=== PATIENT | male | born 1950 | race Caucasian/White ===

== ENCOUNTER 2017-09-12 17:24 | Emergency (ER) | payer MEDICARE ==
[~2017-09-12 17:24] MED LIST: BENZAPRIL; CYCL-36 PO; DOCU1CAP39 PO; DULO20 PO; LEVO50TA4 PO; LOPR50TA12 PO; LORA1TAB PO; NORV10TA PO; OXYC10TA8 PO
[2017-09-12] MEDS ORDERED: DIPHTH/TETANUS/ACEL PERTUSSIS (BOOSTER) 0.5 ML VIAL/PFS IM ONE ×2 (17:27→18:16)
[2017-09-12] MEDS ORDERED: PROPOFOL 1000 MG/100 ML INJ 100 ML ONE ×2 (17:29→18:20)
[2017-09-12] MEDS ORDERED: ROCURONIUM INJ 50 MG/5 ML VIAL ONE (17:46)
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
--- NOTE | 2017-09-12 18:04 | RADRPT ---
EXAM DATE/TIME: 09/12/2017 17:24 [facility] COMPARISON: No previous studies available for comparison. INDICATIONS : Trauma alert; post intubation. MEDICAL HISTORY : Unobtainable. SURGICAL HISTORY : Unobtainable. ENCOUNTER: Initial ACUITY: 1 day PAIN SCORE: Non-responsive. LOCATION: Bilateral chest FINDINGS: A single view of the chest demonstrates the lungs to be symmetrically aerated without evidence of mas s, infiltrate or effusion. The cardiomediastinal contours are unremarkable. Osseous structures are intact. Endotracheal tube tip 3.5 cm above the ashlyn. CONCLUSION: 1. ET tube in good position. 2. The lungs are clear. Ortiz Martinez MD on September 12, 2017 at 18:01 Board Certified Radiologist. This report was verified electronically.
[2017-09-12 18:07] LABS: AUTOMATED NEUTROPHIL # 2.4 TH/MM3 (1.8-7.7); BASOPHIL % 0.4 % (0.0-2.0); EOSINOPHIL # 0.2 TH/MM3 (0-0.4); EOSINOPHIL % 4.3 % (0.0-4.0); HEMATOCRIT 26.9 % (39.0-51.0); HEMOGLOBIN 9.6 GM/DL (13.0-17.0); LYMPH % 29.6 % (9.0-44.0); LYMPHOCYTE # 1.3 TH/MM3 (1.0-4.8); MEAN CELL VOLUME 82.7 FL (80.0-100.0); MEAN CORPUSCULAR HEMOGLOBIN 29.6 PG (27.0-34.0); MEAN CORPUSCULAR HGB CONC 35.8 % (32.0-36.0); MEAN PLATELET VOLUME 7.3 FL (7.0-11.0); MONO % 11.5 % (0.0-8.0); MONOCYTE # 0.5 TH/MM3 (0-0.9); NEUT % 54.2 % (16.0-70.0); PLATELET COUNT 215 TH/MM3 (150-450); RED BLOOD COUNT 3.26 MIL/MM3 (4.50-5.90); RED CELL DISTRIBUTION WIDTH 17.6 % (11.6-17.2); WHITE BLOOD COUNT 4.5 TH/MM3 (4.0-11.0)
[2017-09-12 18:09] VITALS: O2SAT 100
[2017-09-12 18:10] LABS: INTERNATIONAL NORMALIZED RATIO 1.1 RATIO; PROTHROMBIN TIME - PATIENT 10.8 SEC (9.8-11.6)
--- NOTE | 2017-09-12 18:15 | RADRPT ---
EXAM DATE/TIME: 09/12/2017 18:00 [facility] COMPARISON: No previous studies available for comparison. INDICATIONS : NG tube placement. MEDICAL HISTORY : Unobtainable. SURGICAL HISTORY : Unobtainable. ENCOUNTER: Initial ACUITY: 1 day PAIN SCORE: Non-responsive. LOCATION: Abdomen. FINDINGS: A frontal view of the lower chest and upper abdomen is performed. No gastric tube seen. The visuali zed lower lungs are clear. Multiple clips the right upper quadrant. Multiple cardiac leads project over the chest. CONCLUSION: A gastric tube is not identified. A Ortiz Martinez MD on September 12, 2017 at 18:12 Board Certified Radiologist. This report was verified electronically.
[2017-09-12] MEDS ORDERED: ceFAZolin 2 GM PREMIX 50 ML IV STA (18:16)
[2017-09-12] MEDS ORDERED: SODIUM CHLOR 0.9% 1000 ML INJ 1,000 ML IV ONE (18:30)
[2017-09-12] MEDS ORDERED: PROPOFOL 1000 MG/100 ML IV PRN (18:30)
[2017-09-12] MEDS ORDERED: ROCURONIUM INJ 50 MG/5 ML VIAL IV ONE (18:30)
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
== END 2017-09-12 18:40 | disposition short-term general hospital (02) ==
LOC: EDBD 17:24 → NEPI 17:24 → MERGE 17:24 → NEPE 18:40
DX: T31.20 Burns involving 20-29% of body surface with 0% to 9% third degree burns (principal); I10 Essential (primary) hypertension; G89.29 Other chronic pain; J44.9 Chronic obstructive pulmonary disease, unspecified; T65.891A Toxic effect of other specified substances, accidental (unintentional), initial encounter; Y92.000 Kitchen of unspecified non-institutional (private) residence as the place of occurrence of the external cause; Z23 Encounter for immunization
CPT/HCPCS: 16030; 31500; 43753; 51702; 71045; 74018; 80048; 80307; 85025; 85610; 85730; 86850; 86900; 86901; 90471; 90715; 96374; 96375; 96376; 99291; G0390; J3010

== ENCOUNTER 2017-09-21 18:45 | Inpatient (IN) | payer MEDICARE, MEDICAID ==
[~2017-09-21] VITALS: Ht 182.9 cm; Wt 86.1 kg
[2017-09-21 20:00] VITALS: BP 134/68; PULSE 87; RESP 20; TEMP 98.1; O2SAT 98
[2017-09-21] MEDS ORDERED: SODIUM CHLORIDE 0.9% FLUSH 10 ML FLUSH IV FLUSH PRN (20:00)
[2017-09-21] MEDS ORDERED: RESP: IPRATROPIUM 0.5 MG/2.5 ML NEB NEB PRN (20:00)
[2017-09-21] MEDS ORDERED: NALOXONE HCL 0.4 MG/ML AMP IV PUSH PRN ×2 (20:00→21:15)
[2017-09-21] MEDS ORDERED: SODIUM CHLORIDE 0.9% FLUSH 10 ML FLUSH IV FLUSH SCH (21:00)
[2017-09-21 21:15] VITALS: BP 134/68; PULSE 81; RESP 20; TEMP 98.1; O2SAT 98
[2017-09-21] MEDS: METOPROLOL TARTRATE 25 MG TAB PO SCH (23:38)
--- NOTE | 2017-09-21 23:44 | HHI.HP ---
[facility] [place] [facility] Unknown Admission Diagnosis Diagnoses: Past Family Social History Allergies: Coded Allergies: aspirin (Unverified Adverse Reaction, Severe, N/V, 03/17/17) codeine (Unverified Adverse Reaction, Unknown, N/V, 03/17/17) Physical Exam Vital Signs Vital Signs Date Time Temp Pulse Resp B/P (MAP) Pulse Ox O2 Delivery O2 Flow Rate FiO2 09/21/17 21:15 98.1 81 20 134/68 (90) 98 09/21/17 20:00 98.1 87 20 134/68 (90) 98 Physical Exam TEMPLATE: GENERAL: This is a well-nourished, well-developed patient, in no apparent distress. SKIN: No rashes, ecchymoses or lesions. Cool and dry. HEAD: Atraumatic. Normocephalic. EYES: No scleral icterus. No injection or drainage. ENT: Nose without bleeding, purulent drainage. NECK: Trachea midline. No JVD or lymphadenopathy. CARDIOVASCULAR: Regular rate and rhythm without murmurs, gallops, or rubs. RESPIRATORY: Clear to auscultation. Breath sounds equal bilaterally. No wheezes , rales, or rhonchi. GASTROINTESTINAL: Abdomen soft, non-tender, nondistended. No guarding. MUSCULOSKELETAL: Extremities without clubbing, cyanosis, or edema. No calf tenderness. NEUROLOGICAL: Awake and alert. Motor and sensory grossly within normal limits. Normal speech. . Caprini VTE Risk Assessment Caprini Risk Assessment Model Point Value = 1 Point Value = 2 Point Value = 3 Point Value = 5 Age 41-60 Minor surgery BMI > 25 kg/m2 Swollen legs Varicose veins or History of unexplained or recurrent spontaneous Oral contraceptives or hormone replacement Sepsis (< 1 month) Serious lung disease, including pneumonia (< 1 month) Abnormal pulmonary function Acute myocardial infarction Congestive heart failure (< 1 month) History of inflammatory bowel disease Medical patient at bed rest Age 61-74 Arthroscopic surgery Major open surgery (> 45 min) Laparoscopic surgery (> 45 min) Malignancy Confined to bed (> 72 hours) Immobilizing plaster cast Central venous access Age >= 75 History of VTE Family history of VTE Factor V Leiden Prothrombin [id number] Lupus anticoagulant Anticardiolipin antibodies Elevated serum homocysteine Heparin-induced thrombocytopenia Other congenital or acquired thrombophilia Stroke (< 1 month) Elective arthroplasty Hip, pelvis, or leg fracture Acute spinal cord injury (< 1 month) Prophylaxis Regimen Total Risk Factor Score Risk Level Prophylaxis Regimen 0-1 Low Early ambulation 2 Moderate Order ONE of the following: *Sequential Compression Device (SCD) *Heparin 5000 units SQ BID 3-4 Higher Order ONE of the following medications: *Heparin 5000 units SQ TID *Enoxaparin/Lovenox 40 mg SQ daily (WT < 150 kg, CrCl > 30 mL/min) *Enoxaparin/Lovenox 30 mg SQ daily (WT < 150 kg, CrCl > 10-29 mL/min) *Enoxaparin/Lovenox 30 mg SQ BID (WT < 150 kg, CrCl > 30 mL/min) AND/OR *Sequential Compression Device (SCD) 5 or more Highest Order ONE of the following medications: *Heparin 5000 units SQ TID (Preferred with Epidurals) *Enoxaparin/Lovenox 40 mg SQ daily (WT < 150 kg, CrCl > 30 mL/min) *Enoxaparin/Lovenox 30 mg SQ daily (WT < 150 kg, CrCl > 10-29 mL/min) *Enoxaparin/Lovenox 30 mg SQ BID (WT < 150 kg, CrCl > 30 mL/min) AND *Sequential Compression Device (SCD) Halle Rivero Sep 21, 2017 23:44
[2017-09-21] MEDS: HEPARIN SODIUM - SQ 10,000 UNITS/ML VIAL SQ SCH (23:45)
[2017-09-22] VITALS (12 sets, daily range): BP systolic 103–144; BP diastolic 56–75; PULSE 73–102; RESP 16–20; TEMP 98.4–98.9; O2SAT 93–99
[2017-09-22] MEDS ORDERED: SODIUM CHLORIDE 0.65% NASAL SPRAY 45 ML BTL EACH NARE PRN (00:15)
[2017-09-22] MEDS ORDERED: ONDANSETRON HCL 4 MG/2 ML VIAL IV PUSH PRN (00:15)
[2017-09-22] MEDS ORDERED: diphenhydrAMINE HCL 25 MG CAP PO PRN (00:15)
[2017-09-22] MEDS: oxyCODONE HCL 20 MG CONTROLLED RELEASE TAB PO SCH ×3 (00:47→20:34)
[2017-09-22] MEDS: PANTOPRAZOLE SOD 40 MG DELAYED RELEASE TAB PO SCH ×3 (00:48→20:35)
[2017-09-22] MEDS: METHOCARBAMOL 500 MG TAB PO SCH ×4 (00:48→21:19)
[2017-09-22] MEDS: ARTIFICIAL TEARS OPTH SOLN 15 ML BTL EACH EYE SCH ×4 (01:25→17:03)
[2017-09-22] MEDS: PIPERACIL-TAZO 3.375 GM PREMIX 50 ML IV SCH ×3 (01:28→17:03)
[2017-09-22] MEDS: HYDROmorphone HCL PF 2 MG/ML VIAL IV PUSH PRN ×3 (01:57→17:01)
[2017-09-22] MEDS: SODIUM CHLORIDE 0.9% FLUSH 10 ML FLUSH IV FLUSH PRN ×2 (01:58→17:02)
[2017-09-22] MEDS: RESP: IPRATROPIUM 0.5 MG/2.5 ML NEB NEB SCH ×4 (02:48→20:19)
[2017-09-22] MEDS ORDERED: clonazePAM 0.5 MG TAB PO PRN (03:00)
[2017-09-22] MEDS: QUEtiapine FUMARATE 200 MG TAB PO SCH ×2 (03:27→20:34)
[2017-09-22] MEDS: LEVOTHYROXINE SODIUM 75 MCG TAB PO SCH (06:50)
[2017-09-22] MEDS: HEPARIN SODIUM - SQ 10,000 UNITS/ML VIAL SQ SCH ×3 (06:52→21:22)
[2017-09-22] MEDS: BACITRACIN TOP OINT 15 GM TUBE TOPICAL SCH ×4 (06:52→23:00)
[2017-09-22 07:21] LABS: BASOPHIL % 0.3 % (0.0-2.0); EOSINOPHIL # 0.8 TH/MM3 (0-0.4); EOSINOPHIL % 6.3 % (0.0-4.0); HEMATOCRIT 25.1 % (39.0-51.0); HEMOGLOBIN 8.6 GM/DL (13.0-17.0); LYMPH % 11.2 % (9.0-44.0); LYMPHOCYTE # 1.5 TH/MM3 (1.0-4.8); MEAN CELL VOLUME 82.7 FL (80.0-100.0); MEAN CORPUSCULAR HEMOGLOBIN 28.4 PG (27.0-34.0); MEAN CORPUSCULAR HGB CONC 34.3 % (32.0-36.0); MEAN PLATELET VOLUME 7.3 FL (7.0-11.0); MONO % 5.8 % (0.0-8.0); MONOCYTE # 0.8 TH/MM3 (0-0.9); NEUT % 76.4 % (16.0-70.0); PLATELET COUNT 507 TH/MM3 (150-450); RED BLOOD COUNT 3.03 MIL/MM3 (4.50-5.90); RED CELL DISTRIBUTION WIDTH 18.1 % (11.6-17.2); WHITE BLOOD COUNT 13.1 TH/MM3 (4.0-11.0)
[2017-09-22 07:44] LABS: BICARBONATE 30.5 MEQ/L (21.0-32.0); CALCIUM 8.1 MG/DL (8.5-10.1); CREATININE 0.61 MG/DL (0.60-1.30)
[2017-09-22] MEDS: MAGNESIUM HYDROXIDE SUSP 30 ML CUP PO SCH (09:00)
[2017-09-22] MEDS ORDERED: PANTOPRAZOLE SOD 40 MG DELAYED RELEASE TAB PO SCH (09:00)
[2017-09-22] MEDS: METOPROLOL TARTRATE 25 MG TAB PO SCH ×2 (09:00→20:32)
[2017-09-22] MEDS ORDERED: QUEtiapine FUMARATE 200 MG TAB PO SCH (09:00)
--- NOTE | 2017-09-22 09:43 | HHI.HP ---
History of Present Illness Primary Care Physician Unknown Admission Diagnosis Diagnoses: Past Family Social History Allergies: Coded Allergies: aspirin (Unverified Adverse Reaction, Severe, N/V, 03/17/17) codeine (Unverified Adverse Reaction, Unknown, N/V, 03/17/17) Physical Exam Vital Signs Vital Signs Date Time Temp Pulse Resp B/P (MAP) Pulse Ox O2 Delivery O2 Flow Rate FiO2 09/22/17 08:00 98.5 89 18 103/56 (72) 93 09/22/17 04:00 98.9 78 18 108/57 (74) 95 09/22/17 03:45 80 09/22/17 00:14 100 09/22/17 00:00 98.7 102 20 144/75 (98) 96 09/21/17 21:15 98.1 81 20 134/68 (90) 98 09/21/17 20:00 98.1 87 20 134/68 (90) 98 Physical Exam GENERAL: This is a well-nourished, well-developed patient, in no apparent distress. SKIN: No rashes, ecchymoses or lesions. Cool and dry. HEAD: Atraumatic. Normocephalic. No temporal or scalp tenderness. EYES: Pupils equal round and reactive. Extraocular motions intact. No scleral icterus. No injection or drainage. ENT: Nose without bleeding, purulent drainage or septal hematoma. Throat without erythema, tonsillar hypertrophy or exudate. Uvula midline. Airway patent. NECK: Trachea midline. No JVD or lymphadenopathy. Supple, nontender, no meningeal signs. CARDIOVASCULAR: Regular rate and rhythm without murmurs, gallops, or rubs. RESPIRATORY: Clear to auscultation. Breath sounds equal bilaterally. No wheezes , rales, or rhonchi. GASTROINTESTINAL: Abdomen soft, non-tender, nondistended. No hepato-splenomegaly , or palpable masses. No guarding. MUSCULOSKELETAL: Extremities without clubbing, cyanosis, or edema. No joint tenderness, effusion, or edema noted. No calf tenderness. Negative Homans sign bilaterally. NEUROLOGICAL: Awake and alert. Cranial nerves II through XII intact. Motor and sensory grossly within normal limits. Five out of 5 muscle strength in all muscle groups. Normal speech. Laboratory Laboratory Tests Test 09/22/17 06:38 White Blood Count 13.1 Red Blood Count 3.03 Hemoglobin 8.6 Hematocrit 25.1 Mean Corpuscular Volume 82.7 Mean Corpuscular Hemoglobin 28.4 Mean Corpuscular Hemoglobin Concent 34.3 Red Cell Distribution Width 18.1 Platelet Count 507 Mean Platelet Volume 7.3 Neutrophils (%) (Auto) 76.4 Lymphocytes (%) (Auto) 11.2 Monocytes (%) (Auto) 5.8 Eosinophils (%) (Auto) 6.3 Basophils (%) (Auto) 0.3 Neutrophils # (Auto) 10.0 Lymphocytes # (Auto) 1.5 Monocytes # (Auto) 0.8 Eosinophils # (Auto) 0.8 Basophils # (Auto) 0.0 CBC Comment DIFF FINAL Differential Comment Blood Urea Nitrogen 7 Creatinine 0.61 Random Glucose 92 Calcium Level 8.1 Sodium Level 137 Potassium Level 3.8 Chloride Level 100 Carbon Dioxide Level 30.5 Anion Gap 7 Estimat Glomerular Filtration Rate 132 Result Diagram: 09/22/1738 09/22/17637 Caprini VTE Risk Assessment Caprini VTE Risk Assessment: Mod/High Risk (score >= 2) Caprini Risk Assessment Model Point Value = 1 Point Value = 2 Point Value = 3 Point Value = 5 Age 41-60 Minor surgery BMI > 25 kg/m2 Swollen legs Varicose veins or History of unexplained or recurrent spontaneous Oral contraceptives or hormone replacement Sepsis (< 1 month) Serious lung disease, including pneumonia (< 1 month) Abnormal pulmonary function Acute myocardial infarction Congestive heart failure (< 1 month) History of inflammatory bowel disease Medical patient at bed rest Age 61-74 Arthroscopic surgery Major open surgery (> 45 min) Laparoscopic surgery (> 45 min) Malignancy Confined to bed (> 72 hours) Immobilizing plaster cast Central venous access Age >= 75 History of VTE Family history of VTE Factor V Leiden Prothrombin [id number] Lupus anticoagulant Anticardiolipin antibodies Elevated serum homocysteine Heparin-induced thrombocytopenia Other congenital or acquired thrombophilia Stroke (< 1 month) Elective arthroplasty Hip, pelvis, or leg fracture Acute spinal cord injury (< 1 month) Prophylaxis Regimen Total Risk Factor Score Risk Level Prophylaxis Regimen 0-1 Low Early ambulation 2 Moderate Order ONE of the following: *Sequential Compression Device (SCD) *Heparin 5000 units SQ BID 3-4 Higher Order ONE of the following medications: *Heparin 5000 units SQ TID *Enoxaparin/Lovenox 40 mg SQ daily (WT < 150 kg, CrCl > 30 mL/min) *Enoxaparin/Lovenox 30 mg SQ daily (WT < 150 kg, CrCl > 10-29 mL/min) *Enoxaparin/Lovenox 30 mg SQ BID (WT < 150 kg, CrCl > 30 mL/min) AND/OR *Sequential Compression Device (SCD) 5 or more Highest Order ONE of the following medications: *Heparin 5000 units SQ TID (Preferred with Epidurals) *Enoxaparin/Lovenox 40 mg SQ daily (WT < 150 kg, CrCl > 30 mL/min) *Enoxaparin/Lovenox 30 mg SQ daily (WT < 150 kg, CrCl > 10-29 mL/min) *Enoxaparin/Lovenox 30 mg SQ BID (WT < 150 kg, CrCl > 30 mL/min) AND *Sequential Compression Device (SCD) Micheal Chino MD Sep 22, 2017 09:43
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
[2017-09-22] MEDS: MULTIVITAMIN TAB PO SCH (10:17)
[2017-09-22] MEDS: GABAPENTIN 300 MG CAP PO SCH ×3 (10:17→17:02)
[2017-09-22] MEDS: SERTRALINE HCL 100 MG TAB PO SCH (10:17)
[2017-09-22] MEDS: SODIUM CHLORIDE 0.9% FLUSH 10 ML FLUSH IV FLUSH SCH ×2 (10:18→20:30)
[2017-09-23] VITALS (11 sets, daily range): BP systolic 97–130; BP diastolic 53–71; PULSE 69–85; RESP 12–22; TEMP 96–98.6; O2SAT 93–98
[2017-09-23] MEDS: PIPERACIL-TAZO 3.375 GM PREMIX 50 ML IV SCH ×3 (02:29→17:34)
[2017-09-23] MEDS: RESP: IPRATROPIUM 0.5 MG/2.5 ML NEB NEB SCH ×4 (03:18→21:21)
[2017-09-23] MEDS: HYDROmorphone HCL PF 2 MG/ML VIAL IV PUSH PRN ×2 (04:00→14:55)
[2017-09-23] MEDS: LEVOTHYROXINE SODIUM 75 MCG TAB PO SCH (06:16)
[2017-09-23] MEDS: METHOCARBAMOL 500 MG TAB PO SCH ×3 (06:16→21:31)
[2017-09-23] MEDS: HEPARIN SODIUM - SQ 10,000 UNITS/ML VIAL SQ SCH ×3 (06:17→21:31)
[2017-09-23] MEDS: ARTIFICIAL TEARS OPTH SOLN 15 ML BTL EACH EYE SCH ×4 (06:18→17:33)
[2017-09-23] MEDS: BACITRACIN TOP OINT 15 GM TUBE TOPICAL SCH ×3 (06:18→21:32)
[2017-09-23] MEDS: METOPROLOL TARTRATE 25 MG TAB PO SCH ×2 (08:54→20:02)
[2017-09-23] MEDS: oxyCODONE HCL 20 MG CONTROLLED RELEASE TAB PO SCH ×2 (08:55→20:01)
[2017-09-23] MEDS: GABAPENTIN 300 MG CAP PO SCH ×3 (08:55→17:34)
[2017-09-23] MEDS: SERTRALINE HCL 100 MG TAB PO SCH (08:55)
[2017-09-23] MEDS: SODIUM CHLORIDE 0.9% FLUSH 10 ML FLUSH IV FLUSH SCH ×2 (08:55→20:03)
[2017-09-23] MEDS: PANTOPRAZOLE SOD 40 MG DELAYED RELEASE TAB PO SCH ×2 (08:55→20:02)
[2017-09-23] MEDS: MULTIVITAMIN TAB PO SCH (08:55)
[2017-09-23] MEDS: MAGNESIUM HYDROXIDE SUSP 30 ML CUP PO SCH (08:55)
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
[2017-09-23] MEDS ORDERED: HYDROmorphone HCL PF 2 MG/ML VIAL IV ONE (15:30)
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
[2017-09-23] MEDS: AQUAPHOR OINT 50 GM TUBE TOPICAL SCH (17:34)
[2017-09-23] MEDS ORDERED: VANCOMYCIN INJ 1,250 MG in SODIUM CHLOR 0.9% 250 ML INJ 250 ML IV SCH (18:00)
[2017-09-23] MEDS ORDERED: CIPROFLOXACIN 400 MG PREMIX 200 ML IV SCH (18:00)
[2017-09-23] MEDS: VANCOMYCIN INJ 1,250 MG in SODIUM CHLOR 0.9% 250 ML INJ 250 ML IV SCH (20:00)
[2017-09-23] MEDS: CIPROFLOXACIN 400 MG PREMIX 200 ML IV SCH (20:01)
[2017-09-23] MEDS: QUEtiapine FUMARATE 200 MG TAB PO SCH (20:02)
[2017-09-23] MEDS: [UNRECOGNIZED DRUG - OTHER] TOPICAL SCH (20:02)
[2017-09-23] MEDS ORDERED: AQUAPHOR OINT 50 GM TUBE TOPICAL SCH (21:00)
[2017-09-24] VITALS (11 sets, daily range): BP systolic 95–137; BP diastolic 52–69; PULSE 60–81; RESP 18–20; TEMP 97–97.8; O2SAT 93–100
[2017-09-24] MEDS: [UNRECOGNIZED DRUG - OTHER] TOPICAL SCH ×3 (00:05→20:14)
[2017-09-24] MEDS: PIPERACIL-TAZO 3.375 GM PREMIX 50 ML IV SCH ×2 (01:45→11:10)
[2017-09-24] MEDS: RESP: IPRATROPIUM 0.5 MG/2.5 ML NEB NEB SCH ×4 (02:50→21:22)
[2017-09-24] MEDS: METHOCARBAMOL 500 MG TAB PO SCH ×3 (05:17→21:25)
[2017-09-24] MEDS: LEVOTHYROXINE SODIUM 75 MCG TAB PO SCH (05:17)
[2017-09-24] MEDS: HEPARIN SODIUM - SQ 10,000 UNITS/ML VIAL SQ SCH ×3 (05:18→21:26)
[2017-09-24] MEDS: BACITRACIN TOP OINT 15 GM TUBE TOPICAL SCH ×3 (05:18→21:26)
[2017-09-24] MEDS: ARTIFICIAL TEARS OPTH SOLN 15 ML BTL EACH EYE SCH ×5 (05:19→21:26)
[2017-09-24] MEDS: SERTRALINE HCL 100 MG TAB PO SCH (08:20)
[2017-09-24] MEDS: PANTOPRAZOLE SOD 40 MG DELAYED RELEASE TAB PO SCH ×2 (08:20→20:12)
[2017-09-24] MEDS: GABAPENTIN 300 MG CAP PO SCH ×3 (08:20→17:28)
[2017-09-24] MEDS: METOPROLOL TARTRATE 25 MG TAB PO SCH ×2 (08:20→20:13)
[2017-09-24] MEDS: VANCOMYCIN INJ 1,250 MG in SODIUM CHLOR 0.9% 250 ML INJ 250 ML IV SCH ×2 (08:20→13:12)
[2017-09-24] MEDS: MULTIVITAMIN TAB PO SCH (08:21)
[2017-09-24] MEDS: oxyCODONE HCL 20 MG CONTROLLED RELEASE TAB PO SCH ×2 (08:21→20:12)
[2017-09-24] MEDS: SODIUM CHLORIDE 0.9% FLUSH 10 ML FLUSH IV FLUSH SCH ×2 (08:22→20:11)
[2017-09-24] MEDS: MAGNESIUM HYDROXIDE SUSP 30 ML CUP PO SCH (08:22)
[2017-09-24] MEDS: AQUAPHOR OINT 50 GM TUBE TOPICAL SCH ×3 (08:23→17:44)
[2017-09-24] MEDS: CIPROFLOXACIN 400 MG PREMIX 200 ML IV SCH ×2 (11:59→20:11)
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
[2017-09-24] MEDS: HYDROmorphone HCL PF 2 MG/ML VIAL IV PUSH PRN ×2 (13:11→16:43)
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
[2017-09-24] MEDS ORDERED: Vancomycin Consult Pharmacy 1 EA OTHER SCH (13:30)
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
[2017-09-24] MEDS: QUEtiapine FUMARATE 200 MG TAB PO SCH (20:13)
[2017-09-25] VITALS (10 sets, daily range): BP systolic 98–125; BP diastolic 56–67; PULSE 70–86; RESP 16–18; TEMP 97.4–98.6; O2SAT 91–95
[2017-09-25] MEDS: VANCOMYCIN INJ 1,250 MG in SODIUM CHLOR 0.9% 250 ML INJ 250 ML IV SCH ×2 (01:15→12:46)
[2017-09-25] MEDS: HYDROmorphone HCL PF 2 MG/ML VIAL IV PUSH PRN ×2 (01:16→12:26)
[2017-09-25] MEDS: RESP: IPRATROPIUM 0.5 MG/2.5 ML NEB NEB SCH ×4 (02:45→20:42)
[2017-09-25] MEDS: METHOCARBAMOL 500 MG TAB PO SCH ×3 (05:56→20:54)
[2017-09-25] MEDS: HEPARIN SODIUM - SQ 10,000 UNITS/ML VIAL SQ SCH ×3 (05:56→20:55)
[2017-09-25] MEDS: ARTIFICIAL TEARS OPTH SOLN 15 ML BTL EACH EYE SCH ×4 (05:56→23:18)
[2017-09-25] MEDS: LEVOTHYROXINE SODIUM 75 MCG TAB PO SCH (05:56)
[2017-09-25] MEDS: BACITRACIN TOP OINT 15 GM TUBE TOPICAL SCH ×3 (05:57→20:55)
[2017-09-25] MEDS: METOPROLOL TARTRATE 25 MG TAB PO SCH ×2 (08:26→20:54)
[2017-09-25] MEDS: oxyCODONE HCL 20 MG CONTROLLED RELEASE TAB PO SCH ×2 (08:26→20:54)
[2017-09-25] MEDS: GABAPENTIN 300 MG CAP PO SCH ×3 (08:26→17:15)
[2017-09-25] MEDS: SERTRALINE HCL 100 MG TAB PO SCH (08:26)
[2017-09-25] MEDS: PANTOPRAZOLE SOD 40 MG DELAYED RELEASE TAB PO SCH ×2 (08:27→20:54)
[2017-09-25] MEDS: SODIUM CHLORIDE 0.9% FLUSH 10 ML FLUSH IV FLUSH SCH ×2 (08:27→20:54)
[2017-09-25] MEDS: MULTIVITAMIN TAB PO SCH (08:27)
[2017-09-25] MEDS: CIPROFLOXACIN 400 MG PREMIX 200 ML IV SCH ×2 (08:27→20:53)
[2017-09-25] MEDS: AQUAPHOR OINT 50 GM TUBE TOPICAL SCH ×3 (09:00→17:13)
[2017-09-25] MEDS: MAGNESIUM HYDROXIDE SUSP 30 ML CUP PO SCH ×2 (09:00→12:55)
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
[2017-09-25] MEDS ORDERED: PHARMACY ORDERED LAB ONE ×2 (12:45→13:45)
[2017-09-25] MEDS: SODIUM CHLORIDE 0.9% FLUSH 10 ML FLUSH IV FLUSH PRN (12:47)
[2017-09-25] MEDS: [UNRECOGNIZED DRUG - OTHER] TOPICAL SCH ×2 (12:57→20:54)
[2017-09-25] MEDS ORDERED: PIPERACIL-TAZO 4.5 GM PREMIX 100 ML IV SCH (16:00)
[2017-09-25] MEDS: PIPERACIL-TAZO 4.5 GM PREMIX 100 ML IV SCH ×2 (17:14→23:18)
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
[2017-09-25] MEDS: QUEtiapine FUMARATE 200 MG TAB PO SCH (20:54)
[2017-09-26] VITALS (13 sets, daily range): BP systolic 107–136; BP diastolic 56–71; PULSE 65–81; RESP 16–17; TEMP 94.7–98; O2SAT 93–100
[2017-09-26] MEDS: VANCOMYCIN INJ 1,250 MG in SODIUM CHLOR 0.9% 250 ML INJ 250 ML IV SCH ×2 (01:17→13:15)
[2017-09-26] MEDS: HYDROmorphone HCL PF 2 MG/ML VIAL IV PUSH PRN ×2 (03:52→15:26)
[2017-09-26] MEDS: RESP: IPRATROPIUM 0.5 MG/2.5 ML NEB NEB SCH ×4 (04:43→19:54)
[2017-09-26] MEDS: ARTIFICIAL TEARS OPTH SOLN 15 ML BTL EACH EYE SCH ×4 (04:45→21:56)
[2017-09-26] MEDS: LEVOTHYROXINE SODIUM 75 MCG TAB PO SCH (04:46)
[2017-09-26] MEDS: PIPERACIL-TAZO 4.5 GM PREMIX 100 ML IV SCH ×3 (04:46→17:22)
[2017-09-26] MEDS: METHOCARBAMOL 500 MG TAB PO SCH ×3 (04:46→21:55)
[2017-09-26] MEDS: BACITRACIN TOP OINT 15 GM TUBE TOPICAL SCH ×3 (04:46→21:57)
[2017-09-26] MEDS: HEPARIN SODIUM - SQ 10,000 UNITS/ML VIAL SQ SCH ×3 (04:57→21:58)
[2017-09-26] MEDS: GABAPENTIN 300 MG CAP PO SCH ×3 (08:42→17:22)
[2017-09-26] MEDS: METOPROLOL TARTRATE 25 MG TAB PO SCH ×2 (08:42→21:55)
[2017-09-26] MEDS: PANTOPRAZOLE SOD 40 MG DELAYED RELEASE TAB PO SCH ×2 (08:42→21:55)
[2017-09-26] MEDS: SERTRALINE HCL 100 MG TAB PO SCH (08:42)
[2017-09-26] MEDS: MULTIVITAMIN TAB PO SCH (08:42)
[2017-09-26] MEDS: MAGNESIUM HYDROXIDE SUSP 30 ML CUP PO SCH (08:43)
[2017-09-26] MEDS: oxyCODONE HCL 20 MG CONTROLLED RELEASE TAB PO SCH ×2 (08:43→21:55)
[2017-09-26] MEDS: SODIUM CHLORIDE 0.9% FLUSH 10 ML FLUSH IV FLUSH SCH ×2 (08:43→21:54)
[2017-09-26] MEDS: CIPROFLOXACIN 400 MG PREMIX 200 ML IV SCH ×2 (08:43→21:58)
[2017-09-26] MEDS: [UNRECOGNIZED DRUG - OTHER] TOPICAL SCH ×2 (08:46→21:57)
[2017-09-26] MEDS: AQUAPHOR OINT 50 GM TUBE TOPICAL SCH ×3 (08:46→17:23)
[2017-09-26 10:27] LABS: AUTOMATED NEUTROPHIL # 10.4 TH/MM3 (1.8-7.7); BASOPHIL # 0.1 TH/MM3 (0-0.2); BASOPHIL % 0.4 % (0.0-2.0); EOSINOPHIL # 0.8 TH/MM3 (0-0.4); HEMATOCRIT 26.7 % (39.0-51.0); LYMPH % 10.2 % (9.0-44.0); LYMPHOCYTE # 1.4 TH/MM3 (1.0-4.8); MEAN CELL VOLUME 83.6 FL (80.0-100.0); MEAN CORPUSCULAR HEMOGLOBIN 28.2 PG (27.0-34.0); MEAN CORPUSCULAR HGB CONC 33.8 % (32.0-36.0); MONO % 8.4 % (0.0-8.0); MONOCYTE # 1.2 TH/MM3 (0-0.9); PLATELET COUNT 826 TH/MM3 (150-450); RED BLOOD COUNT 3.19 MIL/MM3 (4.50-5.90); RED CELL DISTRIBUTION WIDTH 18.3 % (11.6-17.2); WHITE BLOOD COUNT 13.9 TH/MM3 (4.0-11.0)
[2017-09-26 10:46] LABS: CALCIUM 8.2 MG/DL (8.5-10.1); CREATININE 0.75 MG/DL (0.60-1.30)
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
[2017-09-26] MEDS: QUEtiapine FUMARATE 200 MG TAB PO SCH (21:55)
[2017-09-27] VITALS (13 sets, daily range): BP systolic 101–134; BP diastolic 57–63; PULSE 61–85; RESP 16–20; TEMP 97.5–98.3; O2SAT 92–99
[2017-09-27] MEDS: PIPERACIL-TAZO 4.5 GM PREMIX 100 ML IV SCH ×4 (00:40→16:51)
[2017-09-27] MEDS: VANCOMYCIN INJ 1,250 MG in SODIUM CHLOR 0.9% 250 ML INJ 250 ML IV SCH ×2 (00:40→15:31)
[2017-09-27] MEDS: RESP: IPRATROPIUM 0.5 MG/2.5 ML NEB NEB SCH ×4 (03:49→19:34)
[2017-09-27] MEDS: HEPARIN SODIUM - SQ 10,000 UNITS/ML VIAL SQ SCH ×3 (06:00→22:21)
[2017-09-27] MEDS: METHOCARBAMOL 500 MG TAB PO SCH ×3 (06:20→22:20)
[2017-09-27] MEDS: LEVOTHYROXINE SODIUM 75 MCG TAB PO SCH (06:20)
[2017-09-27] MEDS: BACITRACIN TOP OINT 15 GM TUBE TOPICAL SCH ×3 (06:21→22:22)
[2017-09-27] MEDS: ARTIFICIAL TEARS OPTH SOLN 15 ML BTL EACH EYE SCH ×4 (06:21→22:22)
[2017-09-27] MEDS: MAGNESIUM HYDROXIDE SUSP 30 ML CUP PO SCH (06:49)
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
[2017-09-27] MEDS: CIPROFLOXACIN 400 MG PREMIX 200 ML IV SCH ×2 (09:25→22:25)
[2017-09-27] MEDS: GABAPENTIN 300 MG CAP PO SCH ×3 (09:26→16:51)
[2017-09-27] MEDS: SODIUM CHLORIDE 0.9% FLUSH 10 ML FLUSH IV FLUSH SCH ×2 (09:26→22:21)
[2017-09-27] MEDS: oxyCODONE HCL 20 MG CONTROLLED RELEASE TAB PO SCH ×2 (09:26→22:20)
[2017-09-27] MEDS: METOPROLOL TARTRATE 25 MG TAB PO SCH ×2 (09:26→22:20)
[2017-09-27] MEDS: PANTOPRAZOLE SOD 40 MG DELAYED RELEASE TAB PO SCH ×2 (09:27→22:20)
[2017-09-27] MEDS: [UNRECOGNIZED DRUG - OTHER] TOPICAL SCH ×2 (09:27→22:21)
[2017-09-27] MEDS: AQUAPHOR OINT 50 GM TUBE TOPICAL SCH ×3 (09:27→16:51)
[2017-09-27] MEDS: SERTRALINE HCL 100 MG TAB PO SCH (09:27)
[2017-09-27] MEDS: MULTIVITAMIN TAB PO SCH (09:27)
[2017-09-27] MEDS: PHARMACY ORDERED LAB ONE (12:45)
[2017-09-27] MEDS: HYDROmorphone HCL PF 2 MG/ML VIAL IV PUSH PRN (13:23)
[2017-09-27] MEDS: QUEtiapine FUMARATE 200 MG TAB PO SCH (22:20)
[2017-09-28] VITALS (10 sets, daily range): BP systolic 115–139; BP diastolic 60–73; PULSE 69–83; RESP 18–20; TEMP 97.3–98; O2SAT 92–100
[2017-09-28] MEDS: PIPERACIL-TAZO 4.5 GM PREMIX 100 ML IV SCH ×3 (00:13→13:24)
[2017-09-28] MEDS ORDERED: PHARMACY ORDERED LAB ONE (00:45)
[2017-09-28] MEDS: VANCOMYCIN INJ 1,250 MG in SODIUM CHLOR 0.9% 250 ML INJ 250 ML IV SCH ×2 (02:08→13:29)
[2017-09-28] MEDS: RESP: IPRATROPIUM 0.5 MG/2.5 ML NEB NEB SCH ×4 (02:37→20:54)
[2017-09-28] MEDS: BACITRACIN TOP OINT 15 GM TUBE TOPICAL SCH ×3 (04:49→22:13)
[2017-09-28] MEDS: HEPARIN SODIUM - SQ 10,000 UNITS/ML VIAL SQ SCH ×3 (04:49→22:13)
[2017-09-28] MEDS: METHOCARBAMOL 500 MG TAB PO SCH ×3 (04:49→22:13)
[2017-09-28] MEDS: LEVOTHYROXINE SODIUM 75 MCG TAB PO SCH (04:49)
[2017-09-28] MEDS: ARTIFICIAL TEARS OPTH SOLN 15 ML BTL EACH EYE SCH ×3 (04:50→18:00)
[2017-09-28 05:14] LABS: AUTOMATED NEUTROPHIL # 8.6 TH/MM3 (1.8-7.7); BASOPHIL % 0.2 % (0.0-2.0); EOSINOPHIL # 0.4 TH/MM3 (0-0.4); EOSINOPHIL % 3.7 % (0.0-4.0); HEMATOCRIT 24.8 % (39.0-51.0); HEMOGLOBIN 8.3 GM/DL (13.0-17.0); LYMPH % 14.3 % (9.0-44.0); LYMPHOCYTE # 1.7 TH/MM3 (1.0-4.8); MEAN CELL VOLUME 83.6 FL (80.0-100.0); MEAN CORPUSCULAR HEMOGLOBIN 27.9 PG (27.0-34.0); MEAN CORPUSCULAR HGB CONC 33.3 % (32.0-36.0); MEAN PLATELET VOLUME 6.8 FL (7.0-11.0); MONO % 10.6 % (0.0-8.0); MONOCYTE # 1.3 TH/MM3 (0-0.9); NEUT % 71.2 % (16.0-70.0); PLATELET COUNT 803 TH/MM3 (150-450); RED BLOOD COUNT 2.96 MIL/MM3 (4.50-5.90); RED CELL DISTRIBUTION WIDTH 17.8 % (11.6-17.2); WHITE BLOOD COUNT 12.2 TH/MM3 (4.0-11.0)
[2017-09-28 05:41] LABS: BICARBONATE 27.6 MEQ/L (21.0-32.0); CREATININE 0.82 MG/DL (0.60-1.30)
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
[2017-09-28] MEDS: [UNRECOGNIZED DRUG - OTHER] TOPICAL SCH ×2 (09:00→22:12)
[2017-09-28] MEDS: AQUAPHOR OINT 50 GM TUBE TOPICAL SCH ×3 (09:00→18:00)
[2017-09-28] MEDS: MAGNESIUM HYDROXIDE SUSP 30 ML CUP PO SCH (09:00)
[2017-09-28] MEDS: CIPROFLOXACIN 400 MG PREMIX 200 ML IV SCH ×2 (10:22→22:10)
[2017-09-28] MEDS: SERTRALINE HCL 100 MG TAB PO SCH (10:23)
[2017-09-28] MEDS: PANTOPRAZOLE SOD 40 MG DELAYED RELEASE TAB PO SCH ×2 (10:23→22:11)
[2017-09-28] MEDS: MULTIVITAMIN TAB PO SCH (10:23)
[2017-09-28] MEDS: SODIUM CHLORIDE 0.9% FLUSH 10 ML FLUSH IV FLUSH SCH ×2 (10:24→22:10)
[2017-09-28] MEDS: METOPROLOL TARTRATE 25 MG TAB PO SCH ×2 (10:24→22:11)
[2017-09-28] MEDS: oxyCODONE HCL 20 MG CONTROLLED RELEASE TAB PO SCH ×2 (10:24→22:11)
[2017-09-28] MEDS: GABAPENTIN 300 MG CAP PO SCH ×3 (10:24→18:43)
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
[2017-09-28] MEDS: QUEtiapine FUMARATE 200 MG TAB PO SCH (22:12)
[2017-09-28] MEDS: HYDROmorphone HCL PF 2 MG/ML VIAL IV PUSH PRN (22:14)
[2017-09-29] VITALS (7 sets, daily range): BP systolic 99–160; BP diastolic 53–80; PULSE 74–94; RESP 16–20; TEMP 97.3–98.8; O2SAT 88–97
[2017-09-29] MEDS: ARTIFICIAL TEARS OPTH SOLN 15 ML BTL EACH EYE SCH ×4 (00:43→18:00)
[2017-09-29] MEDS: VANCOMYCIN INJ 1,250 MG in SODIUM CHLOR 0.9% 250 ML INJ 250 ML IV SCH ×2 (01:28→13:00)
[2017-09-29] MEDS: RESP: IPRATROPIUM 0.5 MG/2.5 ML NEB NEB SCH ×4 (03:04→21:07)
[2017-09-29] MEDS: HEPARIN SODIUM - SQ 10,000 UNITS/ML VIAL SQ SCH ×3 (05:05→22:16)
[2017-09-29] MEDS: LEVOTHYROXINE SODIUM 75 MCG TAB PO SCH (05:05)
[2017-09-29] MEDS: METHOCARBAMOL 500 MG TAB PO SCH ×3 (05:05→22:14)
[2017-09-29] MEDS: BACITRACIN TOP OINT 15 GM TUBE TOPICAL SCH ×3 (05:06→22:17)
[2017-09-29 07:50] LABS: CREATININE 0.86 MG/DL (0.60-1.30)
[2017-09-29] MEDS: [UNRECOGNIZED DRUG - OTHER] TOPICAL SCH ×2 (09:00→22:19)
[2017-09-29] MEDS: CIPROFLOXACIN 400 MG PREMIX 200 ML IV SCH ×2 (09:08→22:19)
[2017-09-29] MEDS: SERTRALINE HCL 100 MG TAB PO SCH (09:09)
[2017-09-29] MEDS: GABAPENTIN 300 MG CAP PO SCH ×3 (09:09→17:02)
[2017-09-29] MEDS: PANTOPRAZOLE SOD 40 MG DELAYED RELEASE TAB PO SCH ×2 (09:09→22:14)
[2017-09-29] MEDS: MULTIVITAMIN TAB PO SCH (09:09)
[2017-09-29] MEDS: METOPROLOL TARTRATE 25 MG TAB PO SCH ×2 (09:09→22:15)
[2017-09-29] MEDS: oxyCODONE HCL 20 MG CONTROLLED RELEASE TAB PO SCH ×2 (09:10→22:14)
[2017-09-29] MEDS: MAGNESIUM HYDROXIDE SUSP 30 ML CUP PO SCH (09:11)
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
[2017-09-29] MEDS ORDERED: PANT40TA3 PO (09:59)
[2017-09-29] MEDS ORDERED: QC B500O TOPICAL (09:59)
[2017-09-29] MEDS ORDERED: CIPR-9 PO (09:59)
[2017-09-29] MEDS ORDERED: THERTAB15 PO (09:59)
[2017-09-29] MEDS ORDERED: NEUR300C PO (09:59)
[2017-09-29] MEDS ORDERED: [UNRECOGNIZED DRUG - OTHER] TOPICAL (09:59)
[2017-09-29] MEDS ORDERED: Aquaphor Oint TOPICAL (09:59)
[2017-09-29] MEDS ORDERED: CLIN300C5 PO (09:59)
[2017-09-29] MEDS ORDERED: QUET1TAB9 PO (09:59)
[2017-09-29] MEDS ORDERED: ZOLO100T PO (09:59)
[2017-09-29] MEDS ORDERED: OXYC-395 PO (09:59)
[2017-09-29] MEDS ORDERED: oxyCODONE SR PO (09:59)
[2017-09-29] MEDS: AQUAPHOR OINT 50 GM TUBE TOPICAL SCH ×3 (14:47→18:00)
[2017-09-29] MEDS: HYDROmorphone HCL PF 2 MG/ML VIAL IV PUSH PRN ×2 (17:42→22:17)
[2017-09-29] MEDS: QUEtiapine FUMARATE 200 MG TAB PO SCH (22:15)
[2017-09-29] MEDS: SODIUM CHLORIDE 0.9% FLUSH 10 ML FLUSH IV FLUSH SCH (22:18)
[2017-09-30] VITALS (8 sets, daily range): BP systolic 123–167; BP diastolic 67–92; PULSE 66–93; RESP 16–20; TEMP 97.7–98.4; O2SAT 93–98
[2017-09-30] MEDS: ARTIFICIAL TEARS OPTH SOLN 15 ML BTL EACH EYE SCH ×4 (00:24→18:47)
[2017-09-30] MEDS: VANCOMYCIN INJ 1,250 MG in SODIUM CHLOR 0.9% 250 ML INJ 250 ML IV SCH (02:13)
[2017-09-30] MEDS: RESP: IPRATROPIUM 0.5 MG/2.5 ML NEB NEB SCH ×4 (03:56→21:06)
[2017-09-30] MEDS: METHOCARBAMOL 500 MG TAB PO SCH ×3 (05:31→21:35)
[2017-09-30] MEDS: LEVOTHYROXINE SODIUM 75 MCG TAB PO SCH (05:31)
[2017-09-30] MEDS: HEPARIN SODIUM - SQ 10,000 UNITS/ML VIAL SQ SCH ×3 (05:32→21:38)
[2017-09-30] MEDS: BACITRACIN TOP OINT 15 GM TUBE TOPICAL SCH ×3 (05:32→21:39)
[2017-09-30] MEDS: HYDROmorphone HCL PF 2 MG/ML VIAL IV PUSH PRN ×3 (05:33→22:50)
[2017-09-30] MEDS: MAGNESIUM HYDROXIDE SUSP 30 ML CUP PO SCH (09:00)
[2017-09-30] MEDS: MULTIVITAMIN TAB PO SCH (09:33)
[2017-09-30] MEDS: PANTOPRAZOLE SOD 40 MG DELAYED RELEASE TAB PO SCH ×2 (09:33→21:35)
[2017-09-30] MEDS: GABAPENTIN 300 MG CAP PO SCH ×3 (09:33→18:46)
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
[2017-09-30] MEDS: oxyCODONE HCL 20 MG CONTROLLED RELEASE TAB PO SCH ×2 (09:34→21:36)
[2017-09-30] MEDS: METOPROLOL TARTRATE 25 MG TAB PO SCH ×2 (09:34→21:35)
[2017-09-30] MEDS: SERTRALINE HCL 100 MG TAB PO SCH (09:34)
[2017-09-30] MEDS: [UNRECOGNIZED DRUG - OTHER] TOPICAL SCH ×2 (09:35→21:37)
[2017-09-30] MEDS: SODIUM CHLORIDE 0.9% FLUSH 10 ML FLUSH IV FLUSH SCH ×2 (09:36→21:39)
[2017-09-30] MEDS: AQUAPHOR OINT 50 GM TUBE TOPICAL SCH ×3 (09:36→18:47)
[2017-09-30] MEDS: CIPROFLOXACIN 400 MG PREMIX 200 ML IV SCH ×2 (09:38→21:39)
[2017-09-30] MEDS: QUEtiapine FUMARATE 200 MG TAB PO SCH (21:35)
[2017-10-01] VITALS (11 sets, daily range): BP systolic 119–156; BP diastolic 68–86; PULSE 67–95; RESP 19–20; TEMP 96.5–99.4; O2SAT 90–96
[2017-10-01] MEDS: VANCOMYCIN INJ 1,250 MG in SODIUM CHLOR 0.9% 250 ML INJ 250 ML IV SCH ×2 (01:31→14:09)
[2017-10-01] MEDS: ARTIFICIAL TEARS OPTH SOLN 15 ML BTL EACH EYE SCH ×5 (01:32→23:05)
[2017-10-01] MEDS: RESP: IPRATROPIUM 0.5 MG/2.5 ML NEB NEB SCH ×4 (03:36→21:12)
[2017-10-01] MEDS: LEVOTHYROXINE SODIUM 75 MCG TAB PO SCH (05:40)
[2017-10-01] MEDS: METHOCARBAMOL 500 MG TAB PO SCH ×3 (05:40→21:04)
[2017-10-01] MEDS: BACITRACIN TOP OINT 15 GM TUBE TOPICAL SCH ×3 (05:41→21:04)
[2017-10-01] MEDS: HEPARIN SODIUM - SQ 10,000 UNITS/ML VIAL SQ SCH ×3 (05:41→21:04)
[2017-10-01] MEDS: HYDROmorphone HCL PF 2 MG/ML VIAL IV PUSH PRN ×3 (05:42→23:05)
[2017-10-01] MEDS: MAGNESIUM HYDROXIDE SUSP 30 ML CUP PO SCH (09:00)
[2017-10-01] MEDS: PANTOPRAZOLE SOD 40 MG DELAYED RELEASE TAB PO SCH ×2 (09:11→21:03)
[2017-10-01] MEDS: METOPROLOL TARTRATE 25 MG TAB PO SCH ×2 (09:11→21:03)
[2017-10-01] MEDS: GABAPENTIN 300 MG CAP PO SCH ×3 (09:11→17:59)
[2017-10-01] MEDS: SERTRALINE HCL 100 MG TAB PO SCH (09:11)
[2017-10-01] MEDS: MULTIVITAMIN TAB PO SCH (09:11)
[2017-10-01] MEDS: oxyCODONE HCL 20 MG CONTROLLED RELEASE TAB PO SCH ×2 (09:12→21:03)
[2017-10-01] MEDS: AQUAPHOR OINT 50 GM TUBE TOPICAL SCH ×3 (09:15→18:00)
[2017-10-01] MEDS: [UNRECOGNIZED DRUG - OTHER] TOPICAL SCH ×2 (09:15→21:05)
[2017-10-01] MEDS: CIPROFLOXACIN 400 MG PREMIX 200 ML IV SCH ×2 (09:16→21:07)
[2017-10-01] MEDS: SODIUM CHLORIDE 0.9% FLUSH 10 ML FLUSH IV FLUSH SCH ×2 (09:16→21:07)
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
[2017-10-01] MEDS: QUEtiapine FUMARATE 200 MG TAB PO SCH (21:03)
[2017-10-02] VITALS (8 sets, daily range): BP systolic 103–127; BP diastolic 57–65; PULSE 76–84; RESP 17–20; TEMP 97.5–98.1; O2SAT 90–97
[2017-10-02] MEDS: VANCOMYCIN INJ 1,250 MG in SODIUM CHLOR 0.9% 250 ML INJ 250 ML IV SCH ×2 (01:56→13:05)
[2017-10-02] MEDS: RESP: IPRATROPIUM 0.5 MG/2.5 ML NEB NEB SCH ×3 (02:24→15:27)
[2017-10-02] MEDS: HEPARIN SODIUM - SQ 10,000 UNITS/ML VIAL SQ SCH ×2 (06:03→13:05)
[2017-10-02] MEDS: LEVOTHYROXINE SODIUM 75 MCG TAB PO SCH (06:03)
[2017-10-02] MEDS: METHOCARBAMOL 500 MG TAB PO SCH ×2 (06:04→13:05)
[2017-10-02] MEDS: BACITRACIN TOP OINT 15 GM TUBE TOPICAL SCH ×2 (06:04→13:06)
[2017-10-02] MEDS: ARTIFICIAL TEARS OPTH SOLN 15 ML BTL EACH EYE SCH ×3 (06:04→17:23)
[2017-10-02] MEDS: HYDROmorphone HCL PF 2 MG/ML VIAL IV PUSH PRN ×2 (06:05→15:43)
[2017-10-02] MEDS: SODIUM CHLORIDE 0.9% FLUSH 10 ML FLUSH IV FLUSH SCH (07:31)
[2017-10-02] MEDS: oxyCODONE HCL 20 MG CONTROLLED RELEASE TAB PO SCH (08:14)
[2017-10-02] MEDS: MULTIVITAMIN TAB PO SCH (08:14)
[2017-10-02] MEDS: PANTOPRAZOLE SOD 40 MG DELAYED RELEASE TAB PO SCH (08:14)
[2017-10-02] MEDS: SERTRALINE HCL 100 MG TAB PO SCH (08:14)
[2017-10-02] MEDS: METOPROLOL TARTRATE 25 MG TAB PO SCH (08:14)
[2017-10-02] MEDS: CIPROFLOXACIN 400 MG PREMIX 200 ML IV SCH (08:14)
[2017-10-02] MEDS: MAGNESIUM HYDROXIDE SUSP 30 ML CUP PO SCH (08:14)
[2017-10-02] MEDS: GABAPENTIN 300 MG CAP PO SCH ×3 (08:14→17:23)
[2017-10-02] MEDS: AQUAPHOR OINT 50 GM TUBE TOPICAL SCH ×3 (08:16→17:24)
[2017-10-02] MEDS: [UNRECOGNIZED DRUG - OTHER] TOPICAL SCH (08:16)
[2017-10-02 08:30] LABS: CREATININE 0.82 MG/DL (0.60-1.30)
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
== END 2017-10-02 18:48 | disposition home health service (06) | DRG 194 ==
LOC: N04A 21:00 → OBSVTOIN 09-23 22:24
PROVIDERS: ADMIT Family Medicine; ATTEND Family Medicine
DX: J18.9 Pneumonia, unspecified organism (principal); E22.2 Syndrome of inappropriate secretion of antidiuretic hormone; J44.0 Chronic obstructive pulmonary disease with (acute) lower respiratory infection; J70.5 Respiratory conditions due to smoke inhalation; M48.02 Spinal stenosis, cervical region; G62.9 Polyneuropathy, unspecified; G89.11 Acute pain due to trauma; H60.12 Cellulitis of left external ear; T22.30XD Burn of third degree of shoulder and upper limb, except wrist and hand, unspecified site, subsequent encounter; T23.301D Burn of third degree of right hand, unspecified site, subsequent encounter; T20.012D Burn of unspecified degree of left ear [any part, except ear drum], subsequent encounter; T24.012D Burn of unspecified degree of left thigh, subsequent encounter; X10.2XXD Contact with fats and cooking oils, subsequent encounter; F17.210 Nicotine dependence, cigarettes, uncomplicated; G89.4 Chronic pain syndrome; F41.0 Panic disorder [episodic paroxysmal anxiety]; K22.70 Barrett's esophagus without dysplasia; M48.061 Spinal stenosis, lumbar region without neurogenic claudication; G25.81 Restless legs syndrome; I10 Essential (primary) hypertension; D50.0 Iron deficiency anemia secondary to blood loss (chronic); E03.9 Hypothyroidism, unspecified
CPT/HCPCS: 71045; 76937; 80048; 80202; 82565; 85025; 87070; 87205; 94640; 94664; J0744; J1170; J1644; J2543; J3370; J7050; J7644